=== PATIENT | female | born 1935 | race Caucasian/White ===

== ENCOUNTER 2024-05-08 17:33 | Outpatient (REF) | payer MEDICARE, SELFPAY ==
[2024-05-08 18:12] LABS: Anion Gap 10.8; BUN Creatinine Ratio 17.7; Carbon Dioxide 30.5 mmol/L (21.0-32.0); Chloride 110 mmol/L (98-107); Estimated GFR (African America 50 (>=60); Estimated GFR (Non-African Ame 41 (>=60); Glucose 93 mg/dL (74-106); Potassium 3.3 mmol/L (3.5-5.1); Sodium 148 mmol/L (136-145)
== END 2024-05-08 17:34 | disposition home or self-care (01) ==
LOC: LAB 17:33
PROVIDERS: PCP Family Medicine; Visit Provider Nurse Practitioner Adult Health
DX: E31.9 Polyglandular dysfunction, unspecified (principal); L03.115 Cellulitis of right lower limb
CPT/HCPCS: 36415; 80048